=== PATIENT | female | born 1940 | race Caucasian/White ===

== ENCOUNTER 2017-10-21 07:00 | Emergency (ER) | payer OTHER, BC ==
[~2017-10-21] VITALS: Ht 162.6 cm; Wt 89.0 kg
[~2017-10-21 07:00] MED LIST: ALEVE220 MG PO; ASPIRIN325 MG PO; BENTYL10 MG PO; DIOVAN80 MG PO; FLEXERIL10 MG PO; GLIPIZIDE5 M1 PO; GLIPIZIDE5 MG PO; GLUCOPHAGE1000 M1 PO; HYDROCHLOROTHIA25 MG PO; HYDROCODON-ACE1 EAC5 PO; IBUPROFEN200 M1 PO; LIPITOR10 MG; LIPITOR10 MG PO; LOSARTAN POTAS100 MG PO; NEURONTIN600 MG PO; NEXIUM40 MG PO; PROMETHAZINE HC25 M1 PO; SAVELLA100 MG PO; TYLENOL EXTRA500 MG PO; WELCHOL625 MG PO; XANAX0.25 MG PO
[2017-10-21] MEDS ORDERED: PERCOCET 5/31 TABLET PO (08:30)
[2017-10-21 09:14] VITALS: BP 150/79
== END 2017-10-21 09:16 | disposition home or self-care (01) ==
LOC: EME 07:00
PROC: 2W3QX1Z Immobilization of Right Lower Leg using Splint (ICD-10-PCS; principal; 2017-10-21)
DX: S82.844A Nondisplaced bimalleolar fracture of right lower leg, initial encounter for closed fracture (principal); M25.561 Pain in right knee; W00.0XXA Fall on same level due to ice and snow, initial encounter; E78.5 Hyperlipidemia, unspecified; I10 Essential (primary) hypertension; E11.9 Type 2 diabetes mellitus without complications; Z79.84 Long term (current) use of oral hypoglycemic drugs; Z79.82 Long term (current) use of aspirin; Z88.8 Allergy status to other drugs, medicaments and biological substances
CPT/HCPCS: 73564; 73610; 99281; 99284

== ENCOUNTER 2017-11-04 18:56 | Inpatient (IN) | payer OTHER, BC ==
[~2017-11-04] VITALS: Ht 162.6 cm; Wt 89.8 kg
[~2017-11-04 18:56] MED LIST changes: +PERCOCET 5/31 TABLET PO
[2017-11-04 22:02] LABS: HEMATOCRIT 31.9 % (36.0-46.0); HEMOGLOBIN 9.8 G/DL (11.9-15.5); MCH 22.8 PG (29.0-34.0); MCHC 30.7 G/DL (30.0-36.0); MCV 74.2 FL (83-99); PLATELET COUNT 392 K/uL (156-360); RBC DIS.WIDTH-CV 18.2 % (11.8-14.6); RBC DIS.WIDTH-SD 48.4 % (39-53); WHITE BLOOD COUNT 12.4 K/uL (4.1-10.2)
[2017-11-04 22:14] LABS: CHLORIDE 104 MEQ/L (99-109); CREATININE 0.6 MG/DL (0.6-1.3); GFR ESTIMATE (CALCULATED) > 59 mL/min/; GLUCOSE 131 mg/dL (70-99); SODIUM 138 MEQ/L (136-147); UREA NITROGEN (BUN) 11 mg/dL (9-23)
[2017-11-04 22:21] LABS: POTASSIUM 3.6 MEQ/L (3.7-5.4)
[2017-11-04] MEDS ORDERED: DIOVAN160 MG PO (23:46)
[2017-11-04] MEDS ORDERED: BENADRYL25 MG PO (23:48)
[2017-11-04] MEDS ORDERED: TYLENOL WITH C1 EACH PO (23:50)
[2017-11-04] MEDS ORDERED: TRANSDERM-SCOP1 EACH TD (23:50)
[2017-11-04] MEDS ORDERED: BACTRIM,SEPT1 TABLET PO (23:51)
[2017-11-04] MEDS ORDERED: ZOFRAN ODT4 MG PO (23:51)
[2017-11-04] MEDS ORDERED: FEOSOL325 MG PO (23:52)
[2017-11-04] MEDS ORDERED: PROMETHAZINE12.5 M1 PO (23:53)
[2017-11-05 03:20] VITALS: BP 149/70
[2017-11-05 03:31] LABS: ALBUMIN 3.9 G/DL (3.2-4.8); ALKALINE PHOSPHATASE 71 IU/L (3-129); ALT (GPT) 10 IU/L (3-49); AST (GOT) 15 IU/L (2-34); DIRECT BILIRUBIN 0.1 mg/dL (0.0-0.3); TOTAL BILIRUBIN 0.3 MG/DL (0.0-1.0); TOTAL PROTEIN 6.5 G/DL (6.4-8.3)
[2017-11-05 04:41] LABS: LIPASE 43 U/L (1.0-51.0)
[2017-11-05 13:26] VITALS: BP 135/77
[2017-11-05 14:07] LABS: FOLIC ACID (FOLATE) > 22.0 NG/ML (5.0-22.0)
[2017-11-05 17:07] VITALS: BP 136/62
[2017-11-05 20:00] VITALS: BP 130/66
[2017-11-06] VITALS (7 sets, daily range): BP systolic 129–155; BP diastolic 62–76
[2017-11-06 05:14] LABS: BASOPHIL (%) 0.8 % (0-1); BASOPHIL COUNT 0.1 K/uL (0-0.1); EOSINOPHIL (%) 3.2 % (0-5); EOSINOPHIL COUNT 0.3 K/uL (0-0.3); HEMATOCRIT 28.4 % (36.0-46.0); HEMOGLOBIN 8.3 G/DL (11.9-15.5); IMMATURE GRANULOCYTE (%) 0.4 % (0.0-0.7); LYMPHOCYTE COUNT 2.8 K/uL (1.0-2.8); MCHC 29.2 G/DL (30.0-36.0); MCV 75.1 FL (83-99); MONOCYTE (%) 11.5 % (3-12); MONOCYTE COUNT 1.1 K/uL (0-0.8); NEUTROPHIL (%) 54.1 % (45-76); PLATELET COUNT 351 K/uL (156-360); RBC DIS.WIDTH-CV 18.2 % (11.8-14.6); RBC DIS.WIDTH-SD 49.4 % (39-53); RED BLOOD COUNT 3.78 M/uL (3.80-5.20); WHITE BLOOD COUNT 9.2 K/uL (4.1-10.2)
[2017-11-06 05:35] LABS: CHLORIDE 104 MEQ/L (99-109); CREATININE 0.6 MG/DL (0.6-1.3); GFR ESTIMATE (CALCULATED) > 59 mL/min/; GLUCOSE 140 mg/dL (70-99); POTASSIUM 3.9 MEQ/L (3.7-5.4); SODIUM 139 MEQ/L (136-147); UREA NITROGEN (BUN) 9 mg/dL (9-23)
[2017-11-07 03:51] VITALS: BP 172/79
[2017-11-07 06:35] LABS: BASOPHIL (%) 0.8 % (0-1); BASOPHIL COUNT 0.1 K/uL (0-0.1); EOSINOPHIL (%) 4.4 % (0-5); EOSINOPHIL COUNT 0.3 K/uL (0-0.3); HEMATOCRIT 27.6 % (36.0-46.0); HEMOGLOBIN 8.2 G/DL (11.9-15.5); IMMATURE GRANULOCYTE (%) 0.1 % (0.0-0.7); LYMPHOCYTE COUNT 2.3 K/uL (1.0-2.8); MCH 22.2 PG (29.0-34.0); MCHC 29.7 G/DL (30.0-36.0); MCV 74.6 FL (83-99); MONOCYTE (%) 12.1 % (3-12); MONOCYTE COUNT 0.9 K/uL (0-0.8); NEUTROPHIL (%) 51.6 % (45-76); NEUTROPHIL COUNT 3.7 K/uL (1.8-6.4); PLATELET COUNT 369 K/uL (156-360); RBC DIS.WIDTH-CV 17.9 % (11.8-14.6); RBC DIS.WIDTH-SD 48.2 % (39-53); WHITE BLOOD COUNT 7.3 K/uL (4.1-10.2)
[2017-11-07 07:12] LABS: ALBUMIN 3.2 G/DL (3.2-4.8); ALKALINE PHOSPHATASE 57 IU/L (3-129); ALT (GPT) 12 IU/L (3-49); AST (GOT) 15 IU/L (2-34); CHLORIDE 105 MEQ/L (99-109); CREATININE 0.5 MG/DL (0.6-1.3); GFR ESTIMATE (CALCULATED) > 59 mL/min/; GLUCOSE 131 mg/dL (70-99); POTASSIUM 3.8 MEQ/L (3.7-5.4); SODIUM 139 MEQ/L (136-147); TOTAL BILIRUBIN 0.3 MG/DL (0.0-1.0); TOTAL PROTEIN 5.7 G/DL (6.4-8.3); UREA NITROGEN (BUN) 9 mg/dL (9-23)
[2017-11-07 08:00] VITALS: BP 122/69
[2017-11-07 11:36] VITALS: BP 150/68
[2017-11-07 11:43] VITALS: BP 147/88
[2017-11-07 17:38] VITALS: BP 154/69
[2017-11-07 20:00] VITALS: BP 147/68
[2017-11-08 00:06] VITALS: BP 186/79
[2017-11-08 03:57] VITALS: BP 176/81
[2017-11-08 06:34] LABS: BASOPHIL (%) 0.6 % (0-1); BASOPHIL COUNT 0.1 K/uL (0-0.1); EOSINOPHIL (%) 4.4 % (0-5); EOSINOPHIL COUNT 0.4 K/uL (0-0.3); HEMATOCRIT 31.4 % (36.0-46.0); HEMOGLOBIN 9.4 G/DL (11.9-15.5); IMMATURE GRANULOCYTE (%) 0.3 % (0.0-0.7); LYMPHOCYTE (%) 19.1 % (15-42); LYMPHOCYTE COUNT 1.7 K/uL (1.0-2.8); MCH 22.4 PG (29.0-34.0); MCHC 29.9 G/DL (30.0-36.0); MCV 74.8 FL (83-99); MONOCYTE (%) 9.9 % (3-12); MONOCYTE COUNT 0.9 K/uL (0-0.8); NEUTROPHIL (%) 65.7 % (45-76); NEUTROPHIL COUNT 5.9 K/uL (1.8-6.4); PLATELET COUNT 415 K/uL (156-360); RBC DIS.WIDTH-CV 18.3 % (11.8-14.6); RBC DIS.WIDTH-SD 49.3 % (39-53)
[2017-11-08 07:03] LABS: CHLORIDE 101 MEQ/L (99-109); CREATININE 0.5 MG/DL (0.6-1.3); GFR ESTIMATE (CALCULATED) > 59 mL/min/; GLUCOSE 144 mg/dL (70-99); SODIUM 142 MEQ/L (136-147); UREA NITROGEN (BUN) 10 mg/dL (9-23)
[2017-11-08 07:07] LABS: POTASSIUM 4.8 MEQ/L (3.7-5.4)
[2017-11-08 07:32] VITALS: BP 181/77
[2017-11-08 13:32] VITALS: BP 170/87
[2017-11-08 16:06] VITALS: BP 173/77
[2017-11-08 16:25] LABS: STOOL OCCULT BLD 1ST SPECIMEN NEGATIVE
[2017-11-08 20:45] VITALS: BP 128/88
[2017-11-09 00:05] VITALS: BP 176/77
[2017-11-09 00:45] VITALS: BP 143/71
[2017-11-09 09:50] VITALS: BP 156/72
[2017-11-09 12:14] VITALS: BP 139/64
[2017-11-09 16:09] VITALS: BP 167/72
[2017-11-09 19:38] VITALS: BP 150/67
[2017-11-10] VITALS: BP 155/74
[2017-11-10 07:37] VITALS: BP 164/73
[2017-11-10] MEDS ORDERED: OXYCODONE HCL5 MG PO (07:56)
[2017-11-10] MEDS ORDERED: AMLODIPINE BES2.5 MG PO (07:56)
[2017-11-10] MEDS ORDERED: CYANOCOBALAM1000 MCG PO (07:56)
[2017-11-10] MEDS ORDERED: BISAC-EVAC10 MG PR (07:56)
[2017-11-10] MEDS ORDERED: ELIQUIS5 MG PO (07:56)
[2017-11-10] MEDS ORDERED: POLYETHYLENE GL17 GM PO (07:56)
[2017-11-10] MEDS ORDERED: DOCUSATE SODIU100 MG PO (07:56)
[2017-11-10] MEDS ORDERED: CEFDINIR300 MG PO (08:00)
[2017-11-10 13:48] VITALS: BP 132/62
[2017-11-10 16:55] VITALS: BP 115/56
[2017-11-10 19:40] VITALS: BP 152/69
[2017-11-10 23:51] VITALS: BP 146/84
[2017-11-11 08:46] VITALS: BP 136/64
== END 2017-11-11 10:01 | DRG 948 ==
LOC: EME 18:56 → EDOF 11-05 01:29 → ENRESERV 11-05 01:33 → 5WEST 11-05 02:56
PROVIDERS: Emergency Medicine Emergency Medical Services; Hospitalist; Internal Medicine; Physician Assistant
DX: G89.18 Other acute postprocedural pain (principal); N39.0 Urinary tract infection, site not specified; B96.1 Klebsiella pneumoniae [K. pneumoniae] as the cause of diseases classified elsewhere; S82.891D Other fracture of right lower leg, subsequent encounter for closed fracture with routine healing; I82.4Z1 Acute embolism and thrombosis of unspecified deep veins of right distal lower extremity; E11.40 Type 2 diabetes mellitus with diabetic neuropathy, unspecified; I10 Essential (primary) hypertension; E78.5 Hyperlipidemia, unspecified; D64.9 Anemia, unspecified; Z68.33 Body mass index [BMI] 33.0-33.9, adult; K59.00 Constipation, unspecified; K21.9 Gastro-esophageal reflux disease without esophagitis; E86.0 Dehydration; H54.61 Unqualified visual loss, right eye, normal vision left eye; M19.90 Unspecified osteoarthritis, unspecified site; M79.7 Fibromyalgia; Z86.73 Personal history of transient ischemic attack (TIA), and cerebral infarction without residual deficits; Z90.49 Acquired absence of other specified parts of digestive tract; Z79.899 Other long term (current) drug therapy; Z79.84 Long term (current) use of oral hypoglycemic drugs; Z79.82 Long term (current) use of aspirin; Z79.01 Long term (current) use of anticoagulants
CPT/HCPCS: 36415; 71045; 71275; 73610; 74018; 80048; 80053; 80061; 80076; 81003; 82272; 82306; 82607; 82728 GA; 82746; 82948; 83540 GA; 83690; 84466 GA; 85007; 85025; 85027; 87077; 87086; 87186; 93971; 94799; 99202; 99281; 99285; J0696; J0780; J1170; J1644; J1650; J1815; J1885; J2270; J3010; J3480; J7030; J7040